=== PATIENT | male | born 1985 | race Caucasian/White ===

== ENCOUNTER 2020-11-22 16:29 | Emergency (ER) | payer OTHER, SELFPAY ==
[2020-11-22 16:38] VITALS: BP 147/86; PULSE 70; RESP 16; TEMP 37.1; O2SAT 100
--- NOTE | 2020-11-22 16:43 | ED.GENADULT ---
HPI - General Adult General Chief complaint: Wound/Laceration Stated complaint: Laceration on finger Time Seen by Provider: 11/22/20 16:43 Source: patient and RN notes reviewed Mode of arrival: ambulatory Limitations: no limitations History of Present Illness HPI narrative: 35-year-old male present with complaints of laceration to right hand 2nd (index) finger, caused by multi-purpose knife approximately 30 minutes ago prior to arrival to Urgent Care. Raul reports multi-purpose knife was stuck on backpack he attempted to remove it and cut finger. Denies focal weakness, altered sensation. Denies numbness or tingling, or loss of mobility. No foreign body sensation. RIGHT HAND dominant hand. Tetanus NOT up-to-date. Remains active. The patient reports he have not been diagnosed with COVID-19. The patient reports he is not waiting for the results of a COVID-19 lab test. The patient reports he do not have fever, chills, weakness, or fatigue. The patient reports he do not have a new or worsening cough or shortness of breath. Denies chest pain. The patient reports he do not have any rhinorrhea, congestion, loss of taste, sore throat, nausea, vomiting, abdominal pain, and diarrhea. Tolerating po intake well. Denies recent traveling. Denies concerns for COVID-19 or exposures been home with limited outdoor exposure except for essential household needs, work, and return home. At this time, patient is not suspected of having COVID-19. Some parts of this dictation were generated by voice recognition software and may contain typographical and/or grammatical inaccuracies Related Data Allergies Allergy/AdvReac Type Severity Reaction Status Date / Time No Known Allergies Allergy Unverified 07/21/13 02:43 Review of Systems Review of Systems: Narrative: CONSTITUTIONAL: Denies fever, chills, sweats. EYES: Denies visual changes, redness, discharge. ENT: Denies rhinorrhea, congestion, sore throat, otalgia. CARDIOVASCULAR: Denies chest pain, palpitations, edema. RESPIRATORY: Denies dyspnea, wheezing, cough. GASTROINTESTINAL: Denies abdominal pain, nausea, vomiting, or diarrhea. SKIN: Denies rash or itching. Complains of laceration to right hand 2nd (index) finger. MUSCULOSKELETAL: Denies acute back pain, joint pain, or myalgia. NEUROLOGIC: Denies numbness or focal weakness. PSYCHIATRIC: Denies anxiety or depression. All other systems reviewed & are unremarkable except as noted in HPI and below. [facility] Past Medical History Medical History (Updated 11/23/20 @ 00:00 by Marina Hardy) No significant past medical history Surgical History Surgical History (Updated 11/22/20 @ 16:57 by TERI Walden) No significant past surgical history Family History Family History (Updated 11/22/20 @ 16:58 by TERI Walden) Father Alive and well Mother Alive and well Social History Social History (Updated 11/22/20 @ 16:59 by TERI Walden) Smoking status: Former smoker Tobacco type: cigarettes Second hand tobacco smoke exposure: No Smoking end date: 11/24/99 Alcohol intake: current Substance use: current Substance use type: marijuana Living arrangements: with family Occupation/Education: occupation Gender identity (if verbalized by the patient): Male Sexual Orientation (if Verbalized by the Patient): Straight or Heterosexual Comments At time of signature, agree with nurse past medical, surgical, social, and family history. There is no relevant family history pertinent to the presenting complaint. Exam Narrative: Exam Narrative: GENERAL: This is a well-nourished, well-developed patient, in no apparent distress. HEAD: normocephalic, atraumatic. CARDIOVASCULAR: Regular rate and rhythm without murmurs, gallops, or rubs. RESPIRATORY: Clear to auscultation. Breath sounds equal bilaterally. No wheezes, rales, or rhonchi. GASTROINTESTINAL: Abdomen soft, non-tender, nondistended. [place]
[2020-11-22] MEDS: TETANUS,DIPHTHERIA,AC PERTUSSIS ADULT (0.5 ML) BOOSTRIX IM (17:03)
[2020-11-22] MEDS: LIDOCAINE HCL 1% LOCAL INJ 20 ML VIAL 5 ML INFILTRATE (17:04)
--- NOTE | 2020-11-22 17:27 | PC.NURSE ---
membership sales representative in to do sutures.
== END 2020-11-22 18:00 | disposition home or self-care (01) ==
PROVIDERS: Emergency Provider Nurse Practitioner Family; PCP Family Medicine
DX: S61.210A Laceration without foreign body of right index finger without damage to nail, initial encounter (principal); W26.0XXA Contact with knife, initial encounter; Z23 Encounter for immunization; Z87.891 Personal history of nicotine dependence
CPT/HCPCS: 12001; 90471; 90715; 99213; G0463

== ENCOUNTER 2020-12-11 18:10 | Emergency (ER) | payer OTHER, SELFPAY ==
[2020-12-11 18:22] VITALS: BP 147/95; PULSE 96; RESP 16; TEMP 37.2; O2SAT 99
--- NOTE | 2020-12-11 18:22 | ED.WOUNDLAC ---
HPI - Wound/Laceration General Chief Complaint: Wound/Laceration Stated Complaint: Suture Removal Time Seen by Provider: 12/11/20 18:18 Source: patient and RN notes reviewed Mode of arrival: ambulatory Limitations: no limitations History of Present Illness HPI narrative: 35-year-old male presents for suture removal. Reports he had 8 sutures placed to the second digit of the right hand 18 days ago after he cut his finger sharpening knives. Reports 6 of the sutures came out or he will remove them on his own. Reports he has 2 remaining sutures. Denies any redness, swelling, opening of wound, drainage or other concerns. Related Data Home Medications Medication Instructions Recorded Confirmed No Home Medications 12/11/20 12/11/20 Allergies Allergy/AdvReac Type Severity Reaction Status Date / Time No Known Allergies Allergy Unverified 07/21/13 02:43 Review of Systems Review of Systems: Narrative: CONSTITUTIONAL: Denies malaise, chills, sweats, or fever. SKIN: Reports healing laceration to the second digit of his right hand with 2 intact sutures MUSCULOSKELETAL: Denies musculoskeletal pain NEUROLOGIC: Denies numbness, weakness All systems reviewed & are unremarkable except as noted in HPI and below PMFSH Past Medical History Medical History (Updated 12/11/20 @ 18:27 by Polly Bonilla NP) No significant past medical history Surgical History Surgical History (Updated 11/22/20 @ 16:57 by TERI Walden) No significant past surgical history Family History Family History (Updated 11/22/20 @ 16:58 by TERI Walden) Father Alive and well Mother Alive and well Social History Social History (Updated 11/22/20 @ 16:59 by TERI Walden) Smoking status: Former smoker Tobacco type: cigarettes Second hand tobacco smoke exposure: No Smoking end date: 11/24/99 Alcohol intake: current Substance use: current Substance use type: marijuana Gender identity (if verbalized by the patient): Male Comments At time of signature, agree with nursing past medical, surgical, social and family history. There is no relevant family history pertinent to the presenting complaint Exam Narrative: Exam Narrative: GENERAL: Well-appearing, well-nourished, and in no acute distress. HEAD: Normocephalic EYES: PERRLA, conjunctivae clear NECK: Supple. CHEST: Speaks in full sentences. No respiratory distress. HEART: Regular rate and rhythm. Normal and equal peripheral pulses. EXTREMITIES: Right hand and second digit has have normal strength and sensation. 5/5 strength with digit flexion, extension. Range of motion normal. No clubbing, cyanosis, or edema noted. No tenderness. No scissoring. Normal thumb opposition. Good capillary refill and radial pulse. Distal capillary refill less than 3 seconds. SKIN: Warn, dry, intact, pink. No rash. Healing laceration noted to the palmar aspect of the second digit of the right hand, well approximated, no surrounding erythema, edema, drainage. 2 intact sutures noted NEURO: Alert and oriented x3. PSYCH: Normal mood and affect Course Course Emergency Course: Patient is aware of diagnosis, understands and agrees to treatment plan. Anticipatory guidance given. Patient agrees to follow-up as directed and is aware of reasons to seek care at the emergency department. Portions of this record may have been created with voice recognition software Vital Signs Vital signs: Vital Signs Temperature 99.0 F 12/11/20 18:22 Pulse Rate 96 12/11/20 18:22 Respiratory Rate 16 12/11/20 18:22 Blood Pressure 147/95 H 12/11/20 18:22 Pulse Oximetry 99 12/11/20 18:22 Temperature 99.0 F 12/11/20 18:22 Pulse Rate 96 12/11/20 18:22 Respiratory Rate 16 12/11/20 18:22 Blood Pressure 147/95 H 12/11/20 18:22 Pulse Oximetry 99 12/11/20 18:22 Reviewed. MDM - Wound/Laceration MDM Narrative Medical decision making narrative: Verbal consent was obta
== END 2020-12-11 18:28 | disposition home or self-care (01) ==
PROVIDERS: Emergency Provider Nurse Practitioner
DX: S61.210D Laceration without foreign body of right index finger without damage to nail, subsequent encounter (principal); X58.XXXD Exposure to other specified factors, subsequent encounter; Z87.891 Personal history of nicotine dependence
CPT/HCPCS: 99211; G0463